=== PATIENT | female | born 1980 | race African-American/Black ===

== ENCOUNTER 2023-07-23 00:10 | Emergency (ER) | payer BC, OTHER ==
--- OUTSIDE RECORDS SUMMARY | 2023-07-23 00:14 | XMS REPORT | Continuity of Care Document ---
:1980 Author Organization [facility] t Address [address] [place] [address] [address] [place] [address] Care Team Providers Name Role Phone Asked, No Pcp Primary Care Physician Unavailable Abdirahman Krueger Attending Clinician Unavailable Angel Attending Clinician Unavailable Yoni Attending Clinician Unavailable LIZZETH VALLEJO Attending Clinician Unavailable ISABELLA Attending Clinician Unavailable Tanika Attending Clinician Unavailable LISA LEUNG Attending Clinician Unavailable Miles Cotter Attending Clinician Angel Admitting Clinician Unavailable Yoni Admitting Clinician Unavailable ISABELLA Admitting Clinician Unavailable Tanika Admitting Clinician Unavailable Payers Payer Name Policy Type Policy Number Effective Date Expiration Date S our[place] [id number] 2022 (PPO) 00:00:00 [facility] [id number] Problems Condition Condition Condition Status Onset Resolution Last Treating Co mments Source Name Details Category Date Date Treatment Clinician Date Supraventr Supravent Problem Active 2019-12-02 Memoria icular ricular 21:16:11 l tachycardi tachycardi He rmann a a (disorder) (disorder) Active Problem 12/02/2019 Medical Group Allergies, Adverse Reactions, Alerts This patient has no known allergies or adverse reactions. Social History Social Habit Start Date Stop Date Quantity Comments Source Sexual orientation Method [facility] Gender identity [facility] Sex Assigned At [birth year] [facility] 00:00:00 00:00:00 Smoking Status Start Date Stop Date Source Tobacco smoking consumption unknown [facility] Social History [facility] Medications Ordered Filled Start Stop Current Ordering Indication Dosage Frequency Signature Comments Components Source Medication Medication Date Date Medication? Clinician (SIG) Name Name benzonatate benzonatate No benzonatat [facility] 100 mg 100 mg e 100 mg da capsule capsule capsule Medica l TAKE 1 TAKE 1 TAKE 1 Group CAPSULE BY CAPSULE BY CAPSULE BY MOUTH TWICE MOUTH TWICE MOUTH DAILY DAILY TWICE DAILY nebivolol nebivolol No nebivolol [place] 10 mg 10 mg 10 mg da tablet TAKE tablet TAKE tablet Medical 1 TABLET BY 1 TABLET BY TAKE 1 Group MOUTH ONCE MOUTH ONCE TABLET BY DAILY DAILY MOUTH ONCE DAILY tranexamic tranexamic No tranexamic [place] acid 650 mg acid 650 mg acid 650 da tablet Take tablet Take mg tablet Medical 2 tablets 3 2 tablets 3 Take 2 Group times a day times a day tablets 3 by oral by oral times a route. route. day by oral route. albuterol albuterol No albuterol [place] sulfate HFA sulfate HFA sulfate da 90 90 HFA 90 Medical mcg/actuati mcg/actuati mcg/actuat Group on aerosol on aerosol ion inhaler inhaler aerosol INHALE 2 INHALE 2 inhaler PUFFS BY PUFFS BY INHALE 2 MOUTH EVERY MOUTH EVERY PUFFS BY 6 HOURS 6 HOURS MOUTH NEEDED NEEDED EVERY 6 HOURS NEEDED benzonatate benzonatate No benzonatat [place] 100 mg 100 mg e 100 mg da capsule capsule capsule Medica l TAKE 1 TAKE 1 TAKE 1 Group CAPSULE BY CAPSULE BY CAPSULE BY MOUTH TWICE MOUTH TWICE MOUTH DAILY DAILY TWICE DAILY Flovent HFA Flovent HFA No Flovent [place] 44 44 HFA 44 da mcg/actuati mcg/actuati mcg/actuat Medical on aerosol on aerosol ion Jamar up inhaler inhaler aerosol INHALE 2 INHALE 2 inhaler PUFFS BY PUFFS BY INHALE 2 MOUTH TWICE MOUTH TWICE PUFFS BY DAILY DAILY MOUTH TWICE DAILY fluticasone fluticasone No fluticason [place] propionate propionate e da 50 50 propionate Medical mcg/actuati mcg/actuati 50 G roup on nasal on nasal mcg/actuat spray,suspe spray,suspe ion nasal nsion USE 1 nsion USE 1 spray,susp SPRAY(S) IN SPRAY(S) IN ension USE EACH EACH 1 SPRAY(S) NOSTRIL NOSTRIL IN EACH ONCE DAILY ONCE DAILY NOSTRIL ONCE DAILY nebivolol nebivolol No nebivolol [place] 10 mg 10 mg 10 mg da tablet TAKE tablet TAKE tablet Medical 1 TABLET BY 1 TABLET BY TAKE 1 Group MOUTH ONCE MOUTH ONCE TABLET BY DAILY DAILY MOUTH ONCE DAILY pantoprazol pantoprazol No pantoprazo [place] e 40 mg e 40 mg le 40 mg da tablet,margaret tablet,margaret tablet,del Medical yed release yed release ayed G roup TAKE 1 TAKE 1 release TABLET BY TABLET BY TAKE 1 MOUTH ONCE MOUTH ONCE TABLET BY DAILY DAILY MOUTH ONCE DAILY tranexamic tranexamic No tranexamic [place] acid 650 mg acid 650 mg acid 650 da tablet Take tablet Take mg tablet Medical 2 tablets 3 2 tablets 3 Take 2 Group times a day times a day tablets 3 by oral by oral times a route. route. day by oral route. albuterol albuterol No albuterol [place] sulfate HFA sulfate HFA sulfate da 90 90 HFA 90 Medical mcg/actuati mcg/actuati mcg/actuat Group on aerosol on aerosol ion inhaler inhaler aerosol INHALE 2 INHALE 2 inhaler PUFFS BY PUFFS BY INHALE 2 MOUTH EVERY MOUTH EVERY PUFFS BY 6 HOURS 6 HOURS MOUTH NEEDED NEEDED EVERY 6 HOURS NEEDED Flovent HFA Flovent HFA No Flovent [place] 44 44 HFA 44 da mcg/actuati mcg/actuati mcg/actuat Medical on aerosol on aerosol ion Jamar up inhaler inhaler aerosol INHALE 2 INHALE 2 inhaler PUFFS BY PUFFS BY INHALE 2 MOUTH TWICE MOUTH TWICE PUFFS BY DAILY DAILY MOUTH TWICE DAILY fluticasone fluticasone No fluticason [place] propionate propionate e da 50 50 propionate Medical mcg/actuati mcg/actuati 50 G roup on nasal on nasal mcg/actuat spray,suspe spray,suspe ion nasal nsion USE 1 nsion USE 1 spray,susp SPRAY(S) IN SPRAY(S) IN ension USE EACH EACH 1 SPRAY(S) NOSTRIL NOSTRIL IN EACH ONCE DAILY ONCE DAILY NOSTRIL ONCE DAILY nebivolol nebivolol No nebivolol [place] 10 mg 10 mg 10 mg da tablet TAKE tablet TAKE tablet Medical 1 TABLET BY 1 TABLET BY TAKE 1 Group MOUTH ONCE MOUTH ONCE TABLET BY DAILY DAILY MOUTH ONCE DAILY pantoprazol pantoprazol No pantoprazo [place] e 40 mg e 40 mg le 40 mg da tablet,margaret tablet,margaret tablet,del Medical yed release yed release ayed G roup TAKE 1 TAKE 1 release TABLET BY TABLET BY TAKE 1 MOUTH ONCE MOUTH ONCE TABLET BY DAILY DAILY MOUTH ONCE DAILY albuterol albuterol No albuterol [place] sulfate HFA sulfate HFA sulfate da 90 90 HFA 90 Medical mcg/actuati mcg/actuati mcg/actuat Group on aerosol on aerosol ion inhaler inhaler aerosol INHALE 2 INHALE 2 inhaler PUFFS BY PUFFS BY INHALE 2 MOUTH EVERY MOUTH EVERY PUFFS BY 6 HOURS 6 HOURS MOUTH NEEDED NEEDED EVERY 6 HOURS NEEDED Flovent HFA Flovent HFA No Flovent [place] 44 44 HFA 44 da mcg/actuati mcg/actuati mcg/actuat Medical on aerosol on aerosol ion Jamar up inhaler inhaler aerosol INHALE 2 INHALE 2 inhaler PUFFS BY PUFFS BY INHALE 2 MOUTH TWICE MOUTH TWICE PUFFS BY DAILY DAILY MOUTH TWICE DAILY fluticasone fluticasone No fluticason [place] propionate propionate e da 50 50 propionate Medical mcg/actuati mcg/actuati 50 G roup on nasal on nasal mcg/actuat spray,suspe spray,suspe ion nasal nsion USE 1 nsion USE 1 spray,susp SPRAY(S) IN SPRAY(S) IN ension USE EACH EACH 1 SPRAY(S) NOSTRIL NOSTRIL IN EACH ONCE DAILY ONCE DAILY NOSTRIL ONCE DAILY nebivolol nebivolol No nebivolol [place] 10 mg 10 mg 10 mg da tablet TAKE tablet TAKE tablet Medical 1 TABLET BY 1 TABLET BY TAKE 1 Group MOUTH ONCE MOUTH ONCE TABLET BY DAILY DAILY MOUTH ONCE DAILY pantoprazol pantoprazol No pantoprazo [place] e 40 mg e 40 mg le 40 mg da tablet,margaret tablet,margaret tablet,del Medical yed release yed release ayed G roup TAKE 1 TAKE 1 release TABLET BY TABLET BY TAKE 1 MOUTH ONCE MOUTH ONCE TABLET BY DAILY DAILY MOUTH ONCE DAILY benzonatate benzonatate No 1capsul TID benzonatat [place] 200 mg 200 mg e(s) e 200 mg da capsule capsule capsule Medica l Take 1 Take 1 Take 1 Group capsule 3 capsule 3 capsule 3 times a day times a day times a by oral by oral day by route. route. oral route. nebivolol nebivolol No nebivolol [place] 10 mg 10 mg 10 mg da tablet TAKE tablet TAKE tablet Medical 1 TABLET BY 1 TABLET BY TAKE 1 Group MOUTH ONCE MOUTH ONCE TABLET BY DAILY DAILY MOUTH ONCE DAILY nebivolol nebivolol No nebivolol [place] 10 mg 10 mg 10 mg da tablet TAKE tablet TAKE tablet Medical 1 TABLET BY 1 TABLET BY TAKE 1 Group MOUTH ONCE MOUTH ONCE TABLET BY DAILY DAILY MOUTH ONCE DAILY Lysteda 650 Lysteda 650 No 2 TID Lysteda [facility] mg tablet mg tablet 650 mg da Take 2 Take 2 tablet Medical tablets 3 tablets 3 Take 2 Jamar up times a day times a day tablets 3 by oral by oral times a route. route. day by oral route. nebivolol nebivolol No nebivolol [place] 10 mg 10 mg 10 mg da tablet TAKE tablet TAKE tablet Medical 1 TABLET BY 1 TABLET BY TAKE 1 Group MOUTH ONCE MOUTH ONCE TABLET BY DAILY DAILY MOUTH ONCE DAILY Vital Signs Vital Name Observation Time Observation Value Comments Source BP Diastolic 2023-03-04 00:00:00 98 mm[facility]Hg] [facility] Height 2023-03-04 00:00:00 70 [in_i] [facility] BMI (Body Mass 2023-03-04 00:00:00 28.4 kg/m2 [facility]) Group BP Systolic 2023-03-04 00:00:00 129 mm[Hg] [facility] Body Weight 2023-03-04 00:00:00 198 [lb_av] [facility] BP Diastolic 2023-02-11 00:00:00 83 mm[Hg[facility] Height 2023-02-11 00:00:00 70 [in_i] [facility] BMI (Body Mass 2023-02-11 00:00:00 28 kg/m2 [facility] Index) Group BP Systolic 2023-02-11 00:00:00 130 mm[Hg] [facility] Body Weight 2023-02-11 00:00:00 194.8 [lb_av] [facility] BP Diastolic 2023-01-19 00:00:00 84 mm[Hg] [facility] Height 2023-01-19 00:00:00 70 [in_i] [facility] BMI (Body Mass 2023-01-19 00:00:00 28.6 kg/m2 [facility] Index) Group BP Systolic 2023-01-19 00:00:00 124 mm[Hg] [facility] Body Weight 2023-01-19 00:00:00 199.4 [lb_av] [facility] Height 2022-10-10 00:00:00 70 [in_i] [facility] BMI (Body Mass 2022-10-10 00:00:00 27.4 kg/m2 [facility]) Group Body Weight 2022-10-10 00:00:00 191 [lb_av] [facility] BP Diastolic 2022-08-15 00:00:00 81 mm[Hg] [facility] Height 2022-08-15 00:00:00 70 [in_i] [facility] BMI (Body Mass 2022-08-15 00:00:00 27.3 kg/m2 [facility] Index) Group BP Systolic 2022-08-15 00:00:00 119 mm[Hg] [facility] Body Weight 2022-08-15 00:00:00 190.6 [lb_av] [facility] BP Diastolic 2022-05-22 00:00:00 77 mm[Hg] [facility] Height 2022-05-22 00:00:00 70 [in_i] [facility] BMI (Body Mass 2022-05-22 00:00:00 27.1 kg/m2 [facility]) Group BP Systolic 2022-05-22 00:00:00 122 mm[Hg] [facility] Body Weight 2022-05-22 00:00:00 3024 [oz_av] [facility] Height 2021-08-28 00:00:00 70 [in_i] [facility] BMI (Body Mass 2021-08-28 00:00:00 26.3 kg/m2 [facility]) Group Body Weight 2021-08-28 00:00:00 2928 [oz_av] [facility] Height 2021-04-25 00:00:00 70 [in_i] [facility] BMI (Body Mass 2021-04-25 00:00:00 26.5 kg/m2 [facility] Index) Group BP Systolic 2021-04-25 00:00:00 118 mm[Hg] [facility] Body Weight 2021-04-25 00:00:00 2953.6 [oz_av] [facility] BP Diastolic 2021-04-25 00:00:00 80 mm[Hg] [facility] Height 2020-08-28 00:00:00 70 [in_i] [facility] BMI (Body Mass 2020-08-28 00:00:00 25.7 kg/m2 [facility] Index) Group Body Weight 2020-08-28 00:00:00 2864 [oz_av] [facility] BP Diastolic 2020-06-29 00:00:00 86 mm[Hg] [facility] BP Systolic 2020-06-29 00:00:00 128 mm[Hg] [facility] Body Weight 2020-06-29 00:00:00 186.2 [lb_av] [facility] Systolic (mm Hg) 2019-10-10 21:11:00 Manohar riakenton [place] Diastolic (mm Hg) 2019-10-10 21:11:00 [facility] orial [place] Heart Rate 2019-10-10 21:11:00 [facility] Height 2019-10-10 21:11:00 [facility] 2019-10-10 21:11:00 [facility] BMI Calculated 2019-10-10 21:11:00 Jessicaori al [facility] Procedures Procedure Date / Time Performing Clinician Source Performed US, transvaginal 2022-10-10 00:00:00 Shanell Caceres edical Group MAMMO, screening, 2022-08-15 00:00:00 [facility] bilateral Group Phlebectomy [facility] Plan of Care Planned Activity Planned Date Details Comments Source Future Scheduled Test 2023-07-23 COVID-[address] [facility] 00:13:09 (#1) [code = COVID-19 VACCINE (#1)] Future Scheduled Test 2023-07-23 [facility] 00:13:09 malignant neoplasm of cervix (procedure) [code = 272015297] Future Scheduled Test 2023-07-23 BREAST CANCER [facility] 00:13:09 SCREENING [code = BREAST CANCER SCREENING] Future Scheduled Test 2023-07-23 INFLUENZA VACCINE [facility] 00:13:09 (#1) [code = INFLUENZA VACCINE (#1)] Diagnostic Test 2023-02-11 CBC w/ auto diff [facility] Medical Pending 00:00:00 [code = CBC w/ auto Group diff] Future Scheduled Test 2023-01-22 Hepatitis C Method [facility] 06:27:40 screening (procedure) [code = 497662915] Future Scheduled Test 2023-01-22 [facility] 06:27:40 malignant neoplasm of cervix (procedure) [code = 990099968] Future Scheduled Test 2023-01-22 BREAST CANCER [facility] 06:27:40 SCREENING [code = BREAST CANCER SCREENING] Future Scheduled Test 2023-01-22 INFLUENZA VACCINE [facility] 06:27:40 [code = INFLUENZA VACCINE] Future Scheduled Test 2023-01-22 COVID-[address] [facility] 06:27:40 (#1) [code = COVID-19 VACCINE (#1)] Future Scheduled Test 2021-07-10 COVID-[address] [facility] 10:21:55 (1) [code = COVID-19 VACCINE (1)] Future Scheduled Test 2021-07-10 Hepatitis C Method [facility] 10:21:55 screening (procedure) [code = 737011252] Future Scheduled Test 2021-07-10 [facility] 10:21:55 malignant neoplasm of cervix (procedure) [code = 322595308] Future Scheduled Test 2021-07-10 INFLUENZA VACCINE [facility] 10:21:55 [code = INFLUENZA VACCINE] Instructions [facility] Encounters Start End Encounter Admission Attending Care Care Encounter Source Date/Time Date/Time Type Type Clinicians Facility Department ID 2022-09-18 Inpatient COLTON Krueger [facility] [id number] [facility] 09:30:00 Abdirahman [id number] [facility] 2023-03-04 2023-03-04 Abdirahman [place] - [id number] M [facility]or 00:00:00 00:00:00 Guerrero Adkins Medical Medicenzo fung MD: [address] [facility], [facility] [address], [place] [address] , Ph. [phone] 2023-02-16 2023-02-16 Outpatient COLTON KRUEGER [facility] [id number] [place] 09:41:00 09:41:00 ABDIRAHMAN [id number] [facility] 2023-02-11 2023-02-11 Abdirahman [place] - [id number] [facility] 00:00:00 00:00:00 Guerrero Adkins Medical Medica kenton MD: [address] [facility], [facility] [address], [place] [address] , Ph. [phone] 2023-02-03 2023-02-03 Outpatient Rutledge_L MMG MMG [id number] [place] 00:00:00 00:00:00 0609 [facility] 2023-02-03 2023-02-03 Outpatient Rutledge_L MMG MMG [id number] [place] 00:00:00 00:00:00 0614 [facility] 2023-02-03 2023-02-03 Outpatient Rutledge_L MMG MMG [id number] [place] 00:00:00 00:00:00 0624 [facility] 2023-02-03 2023-02-03 Outpatient Rutledge_L MMG MMG [id number] [place] 00:00:00 00:00:00 0703 [facility] 2023-02-03 2023-02-03 Outpatient Rutledge_L MMG MMG [id number] [place] 00:00:00 00:00:00 0705 Medical [facility] 2023-01-22 2023-01-22 Outpatient EL EVANS, [facility] [id number] [place] 06:26:00 06:26:00 ABDIRAHMAN -[id number] [facility] 2023-01-19 2023-01-19 Abdirahman MMG [place] - [id number] M at[facility]or 00:00:00 00:00:00 Faisal Sterling Medicenzo fung MD: [address] [place] [address] , Ph. [phone] 2022-10-21 2022-10-21 Outpatient Rutledge_L MMG MMG [id number] [place] 00:00:00 00:00:00 0522 Medical [facility] 2022-10-10 2022-10-10 Outpatient Rutledge_L MMG MMG [id number] [place] 00:00:00 00:00:00 0210 Medical [facility] 2022-10-10 2022-10-10 Tequila MMG [place] - [id number] M at[facility] 00:00:00 00:00:00 Discovery cassy Richards [facility]-: [address] [address] , Ph. [phone] 2022-10-09 2022-10-09 Outpatient Rutledge_L MMG MMG [id number] [place] 00:00:00 00:00:00 0209 [facility] 2022-09-19 2022-09-19 Outpatient EL EVANS, [facility] [id number] [place] 11:25:00 11:25:00 ABDIRAHMAN -[id number] [facility] 2022-08-15 2022-08-15 Outpatient EL EVANS, [facility] [id number] [place] 11:12:00 11:12:00 ABDIRAHMAN -[id number] [facility] 2022-08-15 2022-08-15 Outpatient Rutledge_L MMG MMG [id number] [place] 00:00:00 00:00:00 1216 [facility] 2022-08-15 2022-08-15 Abdirahman MMG [place] - [id number] M at[facility] 00:00:00 00:00:00 Faisal Sterling MD: [address] [facility] [address], [place] [address] , Ph. [phone] 2022-08-11 2022-08-11 Outpatient Shield MMG MMG [id number] [place] 00:00:00 00:00:00 1212 [facility] 2022-06-04 2022-06-30 Outpatient YONI [facility] [id number] [place] 09:00:00 00:01:00 LIZZETH [id number] [facility] 2022-05-31 2022-05-31 Outpatient Shield MMG MMG [id number] [place] 00:00:00 00:00:00 1001 [facility] 2022-05-22 2022-05-22 Outpatient Shield MMG MMG [id number] [place] 00:00:00 00:00:00 0922 [facility] 2022-05-22 2022-05-22 Lizzeth MMG [place] - [id number] M at[facility]or 00:00:00 00:00:00 Discovery cassy Vallejo INTERNAL REVENUE AGENT: [address] [facility] [address] [place] [address] , Ph. 2022-05-20 2022-05-20 Outpatient Shield MMG MMG [id number] [place] 00:00:00 00:00:00 0920 [facility] 2022-05-19 2022-05-19 Outpatient Shield MMG MMG [id number] [place] 00:00:00 00:00:00 0919 [facility] 2022-03-27 2022-03-27 Outpatient DICLEMENTE_ MEHOP WAHOP [id number] [place] 00:00:00 00:00:00 YESICA Alcaraz [facility] Program 2021-10-03 2021-10-03 Outpatient Hawkins_M MMG MMG [id number] [place] 10:43:00 10:43:00 0203 Medical Group 2021-08-29 2021-08-29 Outpatient Hawkins_M MMG MMG [id number] [place] 08:55:00 08:55:00 1230 Medical Group 2021-08-28 2021-08-28 Ilzzeth Svitlana_M MMG [place] - [id number] [place] 00:00:00 00:00:00 Discovery Yoni 1229 da INTERNAL REVENUE AGENT: [address] [address] , Ph. 2021-04-27 2021-04-27 Outpatient Hawkins_M MMG MMG [id number] [place] 09:03:00 09:03:00 0828 Medical [facility] 2021-04-25 2021-04-25 Danni S[place]lana_[place] - [id number] [place] 00:00:00 00:00:00 Shazia Penn 0826 [facility] INTERNAL REVENUE AGENT: [address] [place] [address] , Ph. 2020-08-28 2020-08-28 Lizzeth Yoni MMG [place] - [id number] [place] 00:00:00 00:00:00 Discovery Yoni 1229 da INTERNAL REVENUE AGENT: [address] [address] , Ph. 2020-07-18 2020-07-18 Outpatient Rutledge_L MMG MMG [id number] [place] 02:43:00 02:43:00 1118 Medical Group 2020-07-01 2020-07-01 Outpatient Rutledge_L MMG MMG [id number] [place] 12:25:00 12:25:00 1101 Medical Group 2020-06-29 2020-06-29 Abdirahman Rutledge_[place] - [id number] [place] 00:00:00 00:00:00 Guerrero Penn 1030 Faisal Adkins MD: [address] [facility] [address], [place] [address] , Ph. [phone] 2020-06-28 2020-06-28 Outpatient Rutledge_L MMG MMG [id number] [place] 11:11:00 11:11:00 1029 [facility] 2020-05-09 2020-05-09 Outpatient XOCHITL [facility] [id number] [address] [place] [address] 00:00:00 00:00:00 LISA [address] 2020-05-01 2020-05-01 Outpatient Rutledge_L MMG MMG [id number] [place] 01:29:00 01:29:00 0901 [facility] 2019-11-30 2019-11-30 [place] [id number] Memoria 14:30:00 14:30:00 Pre-Reg r Cardiology 03 l [place] Brittanie JD [facility] 2019-11-30 2019-11-30 [place] [id number] Memoria 14:30:00 14:30:00 Pre-Reg r Cardiology 03 l [place] Brittanie JD [facility] 2019-11-30 2019-11-30 Outpatient MHIE MHIE [id number] Memoria 09:30:00 09:30:00 03 l [place] 2019-11-30 2019-11-30 Outpatient Vahe, MG MG [id number] 09:30:00 09:30:00 Majid Elmer 03 2019-11-28 2019-11-28 Ambulatory nullFlavo MHMG [id number] Memoria 16:30:00 16:30:00 Pre-Reg r Cardiology 02 l [place] Brittanie JD [facility] 2019-11-28 2019-11-28 Ambulatory nullFlavo MHMG [id number] Memoria 16:30:00 16:30:00 Pre-Reg r Cardiology 02 l [place] Brittanie JD [facility] 2019-11-28 2019-11-28 Outpatient MHIE IE [id number] Memoria 11:30:00 11:30:00 02 l [place] 2019-11-28 2019-11-28 [id number] 11:30:00 11:30:00 Majid Elmer 02 2019-11-24 2019-11-25 [place] [id number] Memoria 14:10:00 04:59:59 r Cardiology 04 l [place] Brittanie JD [facility] 2019-11-24 2019-11-25 [place] [id number] Memoria 14:10:00 04:59:59 r Cardiology 04 l [place] Brittanie JD [facility] 2019-11-24 2019-11-24 Outpatient Vahe, [facility] [id number] 09:10:00 23:59:59 Majid Elmer 04 2019-11-24 2019-11-24 Outpatient MHIE IE [id number] Memoria 09:10:00 09:10:00 04 l [place] 2019-10-14 2019-10-15 [place] [id number] Memoria 19:30:00 05:59:59 r Cardiology 01 l [place] Brittanie JD [facility] 2019-10-14 2019-10-15 [place] [id number] Memoria 19:30:00 05:59:59 r Cardiology 01 l [place] Brittanie JD [facility] 2019-10-14 2019-10-14 Outpatient Vahe, [facility] [id number] 13:30:00 23:59:59 Majid Elmer 01 2019-10-14 2019-10-14 Outpatient MHIE IE [id number] Memoria 13:30:00 13:30:00 01 l [place] 2019-10-10 2019-10-11 [place] [id number] Memoria 21:00:00 05:59:59 r Cardiology 00 l [place] Brittanie JD [facility] 2019-10-10 2019-10-11 [place] [id number] Memoria 21:00:00 05:59:59 r Cardiology 00 l [place] Brittanie JD [facility] 2019-10-10 2019-10-10 Outpatient Vahe, [facility] [id number] 15:00:00 23:59:59 Miles Payne 00 2019-10-10 2019-10-10 Outpatient [facility] [id number] [facility] 15:00:00 15:00:00 00 l [place] Results Test Description Test Time Test Comments Results Result Comments Source CBC W Auto Differential panel - Blood 2023-02-16 11:53:00 Test Item Value Reference Range Interpretation Comme nts white blood count (test code = white blood count) 5.1 K/uL 4.0- 11.5 red blood count (test code = red blood count) 3.97 M/uL 3.80-5.2 0 hemoglobin (test code = hemoglobin) 9.0 g/dL 10.5-15.7 L hematocrit (test code = hematocrit) 30.9 % 34.0-50.0 L mean corpuscular volume (test code = mean corpuscular 77.8 fL 86.0-100.0 L volume) mean corpuscular hemoglobin (test code = mean corpuscular 22.7 pg 26.2-33.4 L hemoglobin) mean corpuscular HGB conc (test code = mean corpuscular HGB 29.1 g/dL 30.0-34.0 L conc) red cell distribution width (test code = red cell 14.4 % 12.0 -15.5 distribution width) platelet count (test code = platelet count) 249 K/uL 165-450 mean platelet volume (test code = mean platelet volume) 11.8 fL 9.4-12.6 neutrophils % (test code = neutrophils %) 51.9 % 44.4-80.1 Ig% (test code = Ig%) 0.4 % 0.0-0.4 lymphocyte% (test code = lymphocyte%) 36.9 % 10.0-50.0 mono % (test code = mono %) 7.3 % 3.6-12.0 eos % (test code = eos %) 3.1 % 0.0-5.4 basophil % (test code = basophil %) 0.4 % 0.1-1.2 absolute neutrophil count (test code = absolute neutrophil 2.65 K/u L 1.56-6.13 count) Ig# (test code = Ig#) 0.02 K/uL 0.00-0.03 lymph # (test code = lymph #) 1.88 K/uL 1.18-3.74 mono # (test code = mono #) 0.37 K/uL 0.24-0.86 eos # (test code = eos #) 0.16 K/uL 0.04-0.36 basophil # (test code = basophil #) 0.02 K/uL 0.01-0.08 NRBC% (test code = NRBC%) 0 /100 WBC 0-0.2 NRBC# (test code = NRBC#) 0 K/uL [facility] W Auto Differential panel - [id number] 11:53:00 Test Item Value Reference Range Interpretation Comments white blood count (test code = 5.1 K/uL 4.0-11.5 white blood count) red blood count (test code = red 3.97 M/uL 3.80-5.20 blood count) hemoglobin (test code = 9.0 g/dL 10.5-15.7 L hemoglobin) hematocrit (test code = 30.9 % 34.0-50.0 L hematocrit) mean corpuscular volume (test code 77.8 fL 86.0-100.0 L = mean corpuscular volume) mean corpuscular hemoglobin (test 22.7 pg 26.2-33.4 L code = mean corpuscular hemoglobin) mean corpuscular HGB conc (test 29.1 g/dL 30.0-34.0 L code = mean corpuscular HGB conc) red cell distribution width (test 14.4 % 12.0-15.5 code = red cell distribution width) platelet count (test code = 249 K/uL 165-450 platelet count) mean platelet volume (test code = 11.8 fL 9.4-12.6 mean platelet volume) neutrophils % (test code = 51.9 % 44.4-80.1 neutrophils %) Ig% (test code = Ig%) 0.4 % 0.0-0.4 lymphocyte% (test code = 36.9 % 10.0-50.0 lymphocyte%) mono % (test code = mono %) 7.3 % 3.6-12.0 eos % (test code = eos %) 3.1 % 0.0-5.4 basophil % (test code = basophil 0.4 % 0.1-1.2 %) absolute neutrophil count (test 2.65 K/uL 1.56-6.13 code = absolute neutrophil count) Ig# (test code = Ig#) 0.02 K/uL 0.00-0.03 lymph # (test code = lymph #) 1.88 K/uL 1.18-3.74 mono # (test code = mono #) 0.37 K/uL 0.24-0.86 eos # (test code = eos #) 0.16 K/uL 0.04-0.36 basophil # (test code = basophil 0.02 K/uL 0.01-0.08 #) NRBC% (test code = NRBC%) 0 /100 WBC 0-0.2 NRBC# (test code = NRBC#) 0 [id number]00 Test Item Value Reference Range Interpretation Comments pathology S# (test code see emr pathology = pathology S#) report. [facility] [id number] 13:48:00 Test Item Value Reference Range Interpretation Comments HCG quantitative (test code = HCG < 0.1 0-5 quantitative) [facility] [id number] 13:21:00 Test Item Value Reference Range Interpretation Comments glucose (test code = glucose) 118 mg/dL 74-106 H blood urea nitrogen (test code = 9 mg/dL 6-20 blood urea nitrogen) osmolality calculated,serum (test 276 mOsm/kg 280-300 L code = osmolality calculated,serum) creatinine (test code = 0.78 mg/dL 0.50-0.90 creatinine) glomerular filtration rate (test > 60.00 code = glomerular filtration rate) BUN/creatinine ratio (test code = 11.5 12.0-20.0 L BUN/creatinine ratio) sodium level (test code = sodium 138 mmol/L 135-145 level) potassium level (test code = 4.1 mmol/L 3.5-5.2 potassium level) chloride level (test code = 103 mmol/L 98-108 chloride level) CO2 (test code = CO2) 26 mmol/L 21-32 anion gap (test code = anion gap) 13.1 mEq/L 12.0-20.0 calcium level (test code = 8.9 mg/dL 8.6-10.0 calcium level) [facility] W Auto Differential panel - [id number] 13:03:00 Test Item Value Reference Range Interpretation Comments white blood count (test code = 5.5 K/uL 4.0-11.5 white blood count) red blood count (test code = red 4.02 M/uL 3.80-5.20 blood count) hemoglobin (test code = 9.5 g/dL 10.5-15.7 L hemoglobin) hematocrit (test code = 32.2 % 34.0-50.0 L hematocrit) mean corpuscular volume (test code 80.1 fL 86.0-100.0 L = mean corpuscular volume) mean corpuscular hemoglobin (test 23.6 pg 26.2-33.4 L code = mean corpuscular hemoglobin) mean corpuscular HGB conc (test 29.5 g/dL 30.0-34.0 L code = mean corpuscular HGB conc) red cell distribution width (test 14.1 % 12.0-15.5 code = red cell distribution width) platelet count (test code = 263 K/uL 165-450 platelet count) mean platelet volume (test code = 11.6 fL 9.4-12.6 mean platelet volume) neutrophils % (test code = 51.9 % 44.4-80.1 neutrophils %) Ig% (test code = Ig%) 0.5 % 0.0-0.4 H lymphocyte% (test code = 34.4 % 10.0-50.0 lymphocyte%) mono % (test code = mono %) 9.8 % 3.6-12.0 eos % (test code = eos %) 2.9 % 0.0-5.4 basophil % (test code = basophil 0.5 % 0.1-1.2 %) absolute neutrophil count (test 2.87 K/uL 1.56-6.13 code = absolute neutrophil count) Ig# (test code = Ig#) 0.03 K/uL 0.00-0.03 lymph # (test code = lymph #) 1.90 K/uL 1.18-3.74 mono # (test code = mono #) 0.54 K/uL 0.24-0.86 eos # (test code = eos #) 0.16 K/uL 0.04-0.36 basophil # (test code = basophil 0.03 K/uL 0.01-0.08 #) NRBC% (test code = NRBC%) 0 /100 WBC 0-0.2 NRBC# (test code = NRBC#) 0 K/uL [facility] W Auto Differential panel - [id number] 17:07:00 Test Item Value Reference Range Interpretation Comments white blood count (test code = 4.6 K/uL 4.0-11.5 white blood count) red blood count (test code = red 4.08 M/uL 3.80-5.20 blood count) hemoglobin (test code = 9.8 g/dL 10.5-15.7 L hemoglobin) hematocrit (test code = 33.9 % 34.0-50.0 L hematocrit) mean corpuscular volume (test code 83.1 fL 86.0-100.0 L = mean corpuscular volume) mean corpuscular hemoglobin (test 24.0 pg 26.2-33.4 L code = mean corpuscular hemoglobin) mean corpuscular HGB conc (test 28.9 g/dL 30.0-34.0 L code = mean corpuscular HGB conc) red cell distribution width (test 14.7 % 12.0-15.5 code = red cell distribution width) platelet count (test code = 277 K/uL 165-450 platelet count) mean platelet volume (test code = 12.2 fL 9.4-12.6 mean platelet volume) neutrophils % (test code = 54.5 % 44.4-80.1 neutrophils %) Ig% (test code = Ig%) 0.2 % 0.0-0.4 lymphocyte% (test code = 34.3 % 10.0-50.0 lymphocyte%) mono % (test code = mono %) 6.9 % 3.6-12.0 eos % (test code = eos %) 3.7 % 0.0-5.4 basophil % (test code = basophil 0.4 % 0.1-1.2 %) absolute neutrophil count (test 2.52 K/uL 1.56-6.13 code = absolute neutrophil count) Ig# (test code = Ig#) 0.01 K/uL 0.00-0.03 lymph # (test code = lymph #) 1.59 K/uL 1.18-3.74 mono # (test code = mono #) 0.32 K/uL 0.24-0.86 eos # (test code = eos #) 0.17 K/uL 0.04-0.36 basophil # (test code = basophil 0.02 K/uL 0.01-0.08 #) NRBC% (test code = NRBC%) 0 /100 WBC 0-0.2 NRBC# (test code = NRBC#) 0 K/uL [facility] - cancer history assessment [id number] 09:40:00 Test Item Value Reference Range Interpretation Comments [facility] [place] - cancer history does not meet assessment result (test criteria code = [facility] - cancer history assessment result) [facility] + B and SARS CoV + SARS CoV 2 Ag panel, [place], upper respiratory [id number] 16:12:00 Test Item Value Reference Range Interpretation Comments RAPID SARS COV (test code = RAPID positive SARS COV) RAPID FLU A (test code = RAPID FLU negative A) RAPID FLU B (test code = RAPID FLU negative B) [facility] group A, [id number] 11:08:00 Test Item Value Reference Range Interpretation Comments Strep Result (test code = Strep negative Result) [facility] [Presence] in Respiratory specimen by OSKAR with probe [id number] 00:00:00 Test Item Value Reference Range Interpretation Comments SARS-CoV-2 (COVID-19) RNA not detected not detected [Presence] in Respiratory specimen by OSKAR with probe detection (test code = 42851-3) sars-cov-2, OSKAR 2 day tat (test performed code = sars-cov-2, OSKAR 2 day tat) [facility]
[2023-07-23] MEDS ORDERED: CIPROFLOXACIN HCL 500 MG TAB ONE ×2 (00:35→01:05)
--- NOTE | 2023-07-23 01:02 | EDPHYS ---
Physician Documentation [facility] Name: Stanley Foster Age: 42 yrs Sex: Female : 1980 Arrival Date: 07/23/2023 Time: 00:10 Bed IW5 Private MD: ED Physician Colt Herbert HPI: 07/23 00:25 This 42 yrs old Black Female presents to ER via Unassigned with complaints of Employee kb Exposure. 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 Came in to get prophylactic antibiotic.. Historical: - Allergies: 00:47 No Known Allergies; cm10 - Immunization history:: Adult Immunizations up to date. - Social history:: Smoking status: Patient denies any tobacco usage or history of. ROS: 00:25 Constitutional: Negative for fever, chills, and weight loss, kb 00:25 All other systems are negative, Exam: 00:25 Constitutional: This is a well developed, well nourished patient who is awake, alert, kb and in no acute distress. Head/Face: Normocephalic, atraumatic. ENT: Moist Mucous membranes Respiratory: Respirations even and unlabored. No increased work of breathing. Talking in full sentences Skin: Warm, dry with normal turgor. Normal color. MS/ Extremity: Pulses equal, no cyanosis. Neurovascular intact. Full, normal range of motion. Neuro: Awake and alert, GCS 15, oriented to person, place, time, and situation. Moves all extremities. Normal gait. Vital Signs: 00:51 BP 125 / 75; Pulse 91; Resp 18; Temp 97.6(TE); Pulse Ox 100% ; cm10 MDM: 00:15 Patient medically screened. kb 00:25 Data reviewed: vital signs, nurses notes. Counseling: I had a detailed discussion with kb the patient and/or guardian regarding the historical points, exam findings, and any diagnostic results supporting the discharge/admit diagnosis, the need for outpatient follow up, a family practitioner, to return to the emergency department if symptoms worsen or persist or if there are any questions or concerns that arise at home. Administered Medications: 00:55 Drug: Ciprofloxacin PO 1 grams PO once Route: PO; cm10 00:55 Follow up: Response: No adverse reaction cm10 Disposition: 03:57 Co-signature as Attending Physician, Colt Herbert MD I agree with the assessment sp4 and plan of care. I reviewed the patient's care provided by Advanced Practice Provider \T\ agree w/ the diagnosis \T\ care plan. I personally saw the pt \T\ performed a substantive portion of the visit, incldng all aspects of the (History/Exam/Medical Decision Making). Disposition Summary: 07/23/23 00:17 Discharge Ordered Notes: Location: Home kb Condition: Stable kb Diagnosis - Exposure to bacterial meningitis kb Followup: kb - With: Emergency Department - When: As needed - Reason: Worsening of condition Followup: kb - With: Private Physician - When: 2 - 3 days - Reason: Recheck today's complaints, Continuance of care, Re-evaluation by your physician Forms: - Medication Reconciliation Form kb - Thank You Letter kb - Antibiotic Education kb - Prescription Opioid Use kb - Patient Portal Instructions kb - Leadership Thank You Letter kb Signatures: Kelli Rossi, REGRADER-C ALEIDA-Colt Dorado MD MD sp4 Leann Ortiz RN RN cm10
--- NOTE | 2023-07-23 01:02 | ER ---
Nurse's Notes [facility] Name: Stanley Foster Age: 42 yrs Sex: Female : 1980 Arrival Date: 07/23/2023 Time: 00:10 Bed IW5 Private MD: Diagnosis: Exposure to bacterial meningitis Presentation: 07/23 00:47 Chief complaint: Patient states: Presenting to the ED after being exposed to a patient cm10 diagnosed with bacterial meningitis. Coronavirus screen: Vaccine status: Patient reports receiving the 2nd dose of the covid vaccine. Client denies travel out of the [place] in the last 14 days. Ebola Screen: Patient denies travel to an Ebola-affected area in the 21 days before illness onset. No symptoms or risks identified at this time. Initial Sepsis Screen: Does the patient meet any 2 criteria? No. Patient's initial sepsis screen is negative. Does the patient have a suspected source of infection? No. Patient's initial sepsis screen is negative. Risk Assessment: Do you want to hurt yourself or someone else? Patient reports no desire to harm self or others. Onset of symptoms was July 23, 2023. 00:47 Method Of Arrival: Ambulatory cm10 00:47 Acuity: JAIR 4 cm10 Triage Assessment: 00:47 General: Appears in no apparent distress. comfortable, Behavior is calm, cooperative. cm10 Pain: Denies pain. Neuro: No deficits noted. Level of Consciousness is awake, alert, obeys commands, Oriented to person, place, time, situation. Historical: - Allergies: 00:47 No Known Allergies; cm10 - Immunization history:: Adult Immunizations up to date. - Social history:: Smoking status: Patient denies any tobacco usage or history of. Screenin:48 [facility] ED Fall Risk Assessment (Adult) History of falling in the last 3 months, cm10 including since admission No falls in past 3 months (0 pts) Confusion or Disorientation No (0 pts) Intoxicated or Sedated No (0 pts) Impaired Gait No (0 pts) Mobility Assist Device Used No (0 pt) Altered Elimination No (0 pt) Score/Fall Risk Level 0 - 2 = Low Risk Oriented to surroundings, Maintained a safe environment, Hourly rounding (assess needs \T\ fall precautionary measures) done. Abuse screen: Denies threats or abuse. Denies injuries from another. Nutritional screening: No deficits noted. Tuberculosis screening: No symptoms or risk factors identified. Vital Signs: 00:51 BP 125 / 75; Pulse 91; Resp 18; Temp 97.6(TE); Pulse Ox 100% ; cm10 ED Course: 00:12 Patient arrived in ED. jj6 00:13 Kelli Rossi FNP-C [facility] thao 00:13 Colt Herbert MD is Attending Physician. kb 00:47 Triage completed. cm10 00:48 Arm band placed on Patient placed in waiting room. cm10 00:48 Patient has correct armband on for positive identification. Provided Education on: ER cm10 process and procedures. . 00:48 No provider procedures requiring assistance completed. Patient did not have IV access cm10 during this emergency room visit. Administered Medications: 00:55 Drug: Ciprofloxacin PO 1 grams PO once Route: PO; cm10 00:55 Follow up: Response: No adverse reaction cm10 Medication: 00:48 VIS not applicable for this client. cm10 Outcome: 00:17 Discharge ordered by . kb 00:48 Discharged to home ambulatory, cm10 00:48 Condition: good 00:48 Discharge instructions given to patient, Instructed on discharge instructions, follow up and referral plans. Demonstrated understanding of instructions, follow-up care, 01:01 Patient left the ED. cm10 Signatures: Kelli Rossi FNP-C FNP-Ckb Jeffries, Jennifer jj6 Leann Oritz, RN RN cm10
[2023-07-23 01:31] VITALS: BP 125/75; TEMP 97.6; O2SAT 100
== END 2023-07-23 01:01 | disposition home or self-care (01) ==
LOC: ER 00:10
DX: Z20.811 Contact with and (suspected) exposure to meningococcus (principal)
CPT/HCPCS: 99283